=== PATIENT | female | born 2000 | race African-American/Black ===

== ENCOUNTER 2023-04-07 06:47 | Emergency (ER) | payer OTHER ==
[~2023-04-07] VITALS: Ht 160 cm; Wt 55.3 kg
[2023-04-07 06:58] VITALS: BP_SYST 92; PULSE 80; RESP 18; TEMP 97.4; O2SAT 99
== END 2023-04-07 07:48 | disposition home or self-care (01) ==
LOC: SED 06:47
DX: S60.445A External constriction of left ring finger, initial encounter (principal); Z79.899 Other long term (current) drug therapy; W49.04XA Ring or other jewelry causing external constriction, initial encounter; Y93.89 Activity, other specified; Y92.89 Other specified places as the place of occurrence of the external cause; Y99.8 Other external cause status
CPT/HCPCS: 99284